=== PATIENT | female | born 1935 | race Native Hawaiian/Other Pacific Islander ===

== ENCOUNTER → 2017-01-16 | Outpatient (CLI) | payer MEDICARE, BC ==
--- NOTE | 2017-01-16 16:07 | US ---
History: History of ruptured implant on the left and personal history of breast carcinoma status post malignant lumpectomy on the right. Painful left breast nodule. DATE OF SERVICE: 01/16/2017 Services provided: Full field digital bilateral diagnostic mammography. CAD, the images were reviewed with R2 computer aided detection. FINDINGS: Routine and true lateral views of each breast are obtained and compared with 2012 exam. Evidence for free silicone in the left breast is demonstrated with morphology of the granulomas stable since 2012. This appears to correspond to the region of palpable change. Right breast has a scattered glandular pattern that is stable. There are benign-appearing calcifications. No architectural distortion or dominant mass. Directed ultrasound examination is performed in the region of palpable change left breast 11-12 o'clock. Sonographic findings are compatible with silicone in the breast tissue. No additional sonographic abnormality is noted. IMPRESSION: Benign exam. Patient's tenderness and palpable changes are attributed to silicone within the left breast. Morphology and appearance is stable since films from 2012. Recommendation: Routine annual mammography. Mastodynia recommendations were given to the patient. BIRAD CATEGORY: 2 BENIGN Electronically signed by: Melissa Bal MD 01/16/2017 4:07 PM CDT
== END | disposition home or self-care (01) ==
LOC: MAMMO 13:32
PROVIDERS: ATTEND Nurse Practitioner Family
DX: N63 Unspecified lump in breast (principal)

== ENCOUNTER → 2017-06-12 | Outpatient (CLI) | payer MEDICARE | END | disposition home or self-care (01) | LOC: GMAM 14:41 | PROVIDERS: ATTEND Family Medicine | DX: L03.032 Cellulitis of left toe (principal) ==

== ENCOUNTER → 2017-08-29 | Outpatient (CLI) | payer MEDICARE, BC ==
--- NOTE | 2017-08-30 18:26 | MRI ---
EXAM DESCRIPTION: Lumbar Spine w/o Contrast CLINICAL HISTORY: RADICULOPATHY COMPARISON: 07/04/2015 TECHNIQUE: Multiplanar multisequence MR imaging of the lumbar spine was performed without contrast FINDINGS: Degenerative changes have progressed. For purposes of this exam, it is assumed that there are five nonrib-bearing lumbar vertebral bodies. There is increased right L2-3 neural foraminal narrowing which is now severe. There is increased right L2-3 neural foraminal narrowing, which is now severe. There is worsened disc height loss at L2-3, with adjacent endplate changes. Posterior disc osteophyte complex at L2-3 causes mild central canal and moderately severe left and moderate right lateral recess narrowing. Posterior disc osteophyte complex at L3-4 causes mild central canal and moderate bilateral lateral recess narrowing. Posterior disc osteophyte complex at L4-5 causes mild central canal and moderate left and mild right lateral recess narrowing. There is a moderate left lateral disc osteophyte complex at L4-5 and L3-4 and bilateral lateral disc osteophyte complexes at L2-3 and right anterior disc osteophyte complexes at L1-2. There is leftward scoliosis of the lumbar spine. There is mild edema in the left paraspinal musculature of the lower lumbar spine. There is no evidence of acute fracture. No spondylolisthesis or spondylolysis seen. IMPRESSION: Degenerative changes with stenoses as above. Electronically signed by: Ildefonso Hampton 08/30/2017 6:25 PM [facility]
== END | disposition home or self-care (01) ==
LOC: MRI 13:03
PROVIDERS: ATTEND Physician Assistant Medical
DX: M54.16 Radiculopathy, lumbar region (principal)

== ENCOUNTER → 2017-11-20 | Outpatient (CLI) | payer MEDICARE, BC | LOC: GMAM 18:21 | PROVIDERS: ATTEND Family Medicine | DX: R31.21 Asymptomatic microscopic hematuria (principal) ==

== ENCOUNTER → 2018-05-12 | Outpatient (CLI) | payer MEDICARE, BC | LOC: GMAM 14:36 | PROVIDERS: ATTEND Family Medicine | DX: D51.0 Vitamin B12 deficiency anemia due to intrinsic factor deficiency (principal); E55.9 Vitamin D deficiency, unspecified ==